=== PATIENT | female | born 1935 | race Caucasian/White ===

== ENCOUNTER 2022-07-25 11:53 | Inpatient (IN) | payer OTHER, MEDICAID ==
[~2022-07-25] VITALS: Ht 157.5 cm; Wt 56.7 kg
--- NOTE | 2022-07-25 11:58 | NUR ---
PT BIBA BED 9
[2022-07-25 12:02] VITALS: BP 181/71
--- NOTE | 2022-07-25 12:23 | NUR ---
briena from [facility] living for gen weakness. per family ambulatory yesterday. no facial droop. no lsurred speech. - arm drift. noted ble edema 2+ with redness. no sob. aao x2. resp even and nonalbored. denies chest pain, n,v,d,fever, chills, sob.
[2022-07-25] MEDS ORDERED: NACL 0.9% 1,000 ML IV ONE (12:25)
--- NOTE | 2022-07-25 12:49 | NUR ---
labs drawn, covid/flu swab and urine given to lab
--- NOTE | 2022-07-25 12:56 | NUR ---
per lab bnp send out @ this time. lewis lopez aware
--- NOTE | 2022-07-25 13:16 | NUR ---
contact info daughter jacques [phone]
[2022-07-25 13:24] LABS: BASOPHILS # (AUTO) 0.1 K/uL (0.00-0.22); BASOPHILS % (AUTO) 0.8 % (0.0-2.0); EOSINOPHILS % (AUTO) 0.4 % (0.0-4.0); HEMATOCRIT 32.6 % (36-48); HEMOGLOBIN 10.3 g/dL (12.0-16.0); LYMPHOCYTES # (AUTO) 1.7 K/uL (2.5-16.5); LYMPHOCYTES % (AUTO) 20.1 % (20.5-51.1); MEAN CORPUSCULAR HEMOGLOBIN 20 pg (27-31); MEAN CORPUSCULAR HGB CONC 32 g/dL (33-37); MEAN CORPUSCULAR VOLUME 63.3 fL (80-94); MONOCYTES # (AUTO) 0.4 K/uL (0.8-1.0); MONOCYTES % (AUTO) 5.1 % (1.7-9.3); NEUTROPHILS # (AUTO) 6.2 K/uL (1.8-7.7); NEUTROPHILS % (AUTO) 73.6 % (42.2-75.2); PLATELET COUNT (AUTO) 284 K/uL (140-450); RED BLOOD CELL COUNT(AUTO) 5.15 MIL/uL (4.20-5.40); RED CELL DISTRIBUTION WIDTH 16.8 % (11.6-13.7); WHITE BLOOD COUNT (AUTO) 8.4 K/uL (4.8-10.8)
[2022-07-25 13:51] LABS: PROTHROMBIN TIME 10.4 secs (10.8-13.4)
[2022-07-25 13:51] LABS: APPEARANCE,URINE CLEAR (CLEAR); BILIRUBIN,URINE NEGATIVE (NEGATIVE); BLOOD, URINE NEGATIVE (NEGATIVE); COLOR,URINE YELLOW (YELLOW); LEUKOCYTE ESTERASE ,URINE TRACE (NEGATIVE); NITRITE, URINE POSITIVE (NEGATIVE); PH,URINE 7.5 (5.0-9.0); UGLUCOSE NEGATIVE (NEGATIVE)
[2022-07-25 13:58] LABS: ALBUMIN 3.7 g/dL (3.4-5.0); ANION GAP 13.2 (8-16); ASPARTATE AMINOTRANSFERASE 23 U/L (15-37); CHLORIDE 104 mmol/L (98-107); CREATININE 0.6 mg/dL (0.6-1.3); GLUCOSE 141 mg/dL (74-106); POTASSIUM 4.2 mmol/L (3.5-5.1); SODIUM SERUM 139 mmol/L (136-145); TOTAL BILIRUBIN 0.6 mg/dL (0.0-1.0); UREA NITROGEN, BLOOD 18 mg/dL (7-18)
[2022-07-25 14:03] LABS: THYROID STIMULATING HORMONE 0.46 uIU/mL (0.34-3.74)
[2022-07-25 14:07] LABS: RBC,URINE 0-5 /HPF (0-5)
[2022-07-25] MEDS ORDERED: cefTRIAXone 1,000 MG VIAL ONE (14:30)
[2022-07-25] MEDS ORDERED: POTASSIUM CHLORIDE 10 MEQ TABER PO PRN (15:15)
[2022-07-25] MEDS ORDERED: ONDANSETRON 4 MG/2 ML VIAL IVP PRN (15:15)
[2022-07-25] MEDS: NACL 0.9% 1,000 ML IV SCH (15:15)
[2022-07-25] MEDS ORDERED: MAG SULF 2000 MG/WATER PREMIX 50 ML IV PRN (15:15)
--- NOTE | 2022-07-25 16:12 | NUR ---
PATIENT HAS BEEN SCREENED AND CATEGORIZED MODERATE NUTRITION RISK. PATIENT WILL BE SEEN WITHIN 3-5 DAYS OF ADMISSION. REVIEWED BY ERWIN SHEPPARD RD
[2022-07-25 16:54] LABS: PROTHROMBIN TIME 10.6 secs (10.8-13.4)
[2022-07-25 17:21] LABS: CHOL/HDL RATIO 2.4 (1-4.5); MAGNESIUM 1.9 mg/dL (1.8-2.4); PHOSPHORUS 2.7 mg/dL (2.5-4.9)
--- NOTE | 2022-07-25 17:21 | NUR ---
aao x2 with periods of forgetfullness. resp even and nonlabored. vss. pending med surg bed
[2022-07-25 17:51] LABS: FREE T4 (FREE THYROXINE) 0.96 ng/dL (0.76-1.46)
--- NOTE | 2022-07-25 19:15 | NUR ---
REPORT GIVEN TO NICK PATEL
--- NOTE | 2022-07-25 19:53 | NUR ---
Patient resting in bed, A/Ox4, chest rise and fall symmetrical, no s/s of distress.
--- NOTE | 2022-07-25 20:30 | NUR ---
Patient resting in bed, A/Ox4, chest rise and fall symmetrical, no c/o pain or s/s of distress.
[2022-07-25] MEDS: DOCUSATE SODIUM 100 MG GELCAP PO SCH (20:42)
[2022-07-25 21:20] LABS: THYROID STIMULATING HORMONE 0.38 uIU/mL (0.34-3.74)
--- NOTE | 2022-07-25 21:50 | NUR ---
Patient resting in bed, A/Ox4, chest rise and fall symmetrical, no c/o pain or s/s of distress.
--- NOTE | 2022-07-25 22:18 | NUR ---
Patient will be admitted to care of [facility] Nurse Cummings. Admited to [facility]. Will go to room 108B. Belongings list completed. Report to [facility] Nurse Cummings. [facility] Nurse Zoila verbalized understanding of report, no further questions.
[2022-07-25 22:20] VITALS: BP 188/89
--- NOTE | 2022-07-25 22:20 | NUR ---
RECEIVED PT A NEW ADMIT FROM ER. PATIENT IS AWAKE, ALERT AND ORIENTED X 3, FORGETFUL AT TIMES. DAUGHTER AT THE BEDSIDE. PT DENIES PAIN. DENIES SHORTNESS OF BREATH. NOTED BLE REDNESS/DRY. SKIN WARM AND DRY TO TOUCH. ORIENTED TO MST SET UP, CALL LIGHT PLACED WITHIN REACH. SAFETY PRECAUTIONS IN PLACE
[2022-07-25] MEDS: hydrALAZINE 20 MG/ML VIAL IVP PRN (23:13)
--- NOTE | 2022-07-25 23:45 | NUR ---
INCONTINENT OF URINE, PERINEAL CARE RENDERED. MADE COMFORTABLE IN BED. CALL LIGHT IN REACH.
[2022-07-26 00:13] VITALS: BP 158/68
[2022-07-26 07:19] LABS: PHOSPHORUS 2.6 mg/dL (2.5-4.9)
[2022-07-26 07:26] LABS: ANION GAP 11.9 (8-16); CARBON DIOXIDE 25.8 mmol/L (21-32); CHLORIDE 105 mmol/L (98-107); CREATININE 0.5 mg/dL (0.6-1.3); GLUCOSE 112 mg/dL (74-106); POTASSIUM 3.7 mmol/L (3.5-5.1); SODIUM SERUM 139 mmol/L (136-145)
[2022-07-26 07:49] LABS: UREA NITROGEN, BLOOD 15 mg/dL (7-18)
[2022-07-26 08:00] VITALS: BP 152/64
[2022-07-26 08:04] LABS: BASOPHILS % (AUTO) 0.5 % (0.0-2.0); EOSINOPHILS % (AUTO) 0.2 % (0.0-4.0); HEMATOCRIT 32.3 % (36-48); HEMOGLOBIN 10.1 g/dL (12.0-16.0); LYMPHOCYTES # (AUTO) 1.9 K/uL (2.5-16.5); LYMPHOCYTES % (AUTO) 22.2 % (20.5-51.1); MEAN CORPUSCULAR HEMOGLOBIN 20 pg (27-31); MEAN CORPUSCULAR HGB CONC 31 g/dL (33-37); MEAN CORPUSCULAR VOLUME 63.4 fL (80-94); MONOCYTES # (AUTO) 0.4 K/uL (0.8-1.0); MONOCYTES % (AUTO) 4.7 % (1.7-9.3); NEUTROPHILS # (AUTO) 6.1 K/uL (1.8-7.7); NEUTROPHILS % (AUTO) 72.4 % (42.2-75.2); PLATELET COUNT (AUTO) 275 K/uL (140-450); RED BLOOD CELL COUNT(AUTO) 5.09 MIL/uL (4.20-5.40); RED CELL DISTRIBUTION WIDTH 16.6 % (11.6-13.7); WHITE BLOOD COUNT (AUTO) 8.4 K/uL (4.8-10.8)
[2022-07-26] MEDS: PANTOPRAZOLE 40 MG INJ VIAL IVP SCH (10:19)
[2022-07-26] MEDS: DOCUSATE SODIUM 100 MG GELCAP PO SCH ×2 (10:20→20:28)
[2022-07-26] MEDS: NACL 0.9% 1,000 ML IV SCH (11:15)
--- NOTE | 2022-07-26 11:25 | NUR ---
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
[2022-07-26] MEDS ORDERED: CEPH-588 PO (11:56)
[2022-07-26] MEDS: ACETAMINOPHEN 325 MG TAB PO PRN (13:14)
[2022-07-26 16:00] VITALS: BP 163/65
--- NOTE | 2022-07-26 19:10 | NUR ---
RECEIVED PATIENT LYING ON THE BED, EATING, NO SIGNS OF DISTRESS NOTED, DENIES PAIN, FAMILY AT BEDSIDE. CALL LIGHT WITHIN REACH.
[2022-07-26 20:00] VITALS: BP 189/62
--- NOTE | 2022-07-26 20:30 | NUR ---
SCHEDULED MEDICATIONS GIVEN ORDERED.
[2022-07-26] MEDS: hydrALAZINE 20 MG/ML VIAL IVP PRN (20:57)
--- NOTE | 2022-07-26 20:57 | NUR ---
PRN APRESOLINE GIVEN, BP 189/62, P 88.
--- NOTE | 2022-07-26 21:57 | NUR ---
RECHECKED BP 148/60, P 93. BEDSIDE CARE DONE, PATIENT REPOSITIONED. CALL LIGHT WITHIN REACH.
--- NOTE | 2022-07-27 00:47 | NUR ---
PATIENT IS ASLEEP, BREATHING EVEN AND NON LABORED, ALL SAFETY MEASURES IN PLACE.
[2022-07-27] MEDS: NACL 0.9% 1,000 ML IV SCH ×2 (03:15→22:48)
--- NOTE | 2022-07-27 04:20 | NUR ---
BEDSIDE CARE DONE, PATIENT REPOSITIONED. CALL LIGHT WITHIN REACH, BED IN LOW AND LOCKED POSITION.
--- NOTE | 2022-07-27 07:12 | NUR ---
ENDORSED PATIENT TO DAY NURSE FOR CONTINUITY OF CARE. NEEDS MET THROUGHOUT THE SHIFT, PATIENT IN STABLE CONDITION.
[2022-07-27 07:20] LABS: BASOPHILS % (AUTO) 0.6 % (0.0-2.0); EOSINOPHILS % (AUTO) 0.6 % (0.0-4.0); HEMATOCRIT 31.4 % (36-48); HEMOGLOBIN 9.9 g/dL (12.0-16.0); LYMPHOCYTES # (AUTO) 1.5 K/uL (2.5-16.5); LYMPHOCYTES % (AUTO) 18.3 % (20.5-51.1); MEAN CORPUSCULAR HEMOGLOBIN 20 pg (27-31); MEAN CORPUSCULAR HGB CONC 32 g/dL (33-37); MEAN CORPUSCULAR VOLUME 62.9 fL (80-94); MONOCYTES # (AUTO) 0.5 K/uL (0.8-1.0); MONOCYTES % (AUTO) 6.6 % (1.7-9.3); NEUTROPHILS # (AUTO) 6.1 K/uL (1.8-7.7); NEUTROPHILS % (AUTO) 73.9 % (42.2-75.2); PLATELET COUNT (AUTO) 262 K/uL (140-450); RED CELL DISTRIBUTION WIDTH 16.7 % (11.6-13.7); WHITE BLOOD COUNT (AUTO) 8.3 K/uL (4.8-10.8)
[2022-07-27 07:22] LABS: ANION GAP 10.3 (8-16); CARBON DIOXIDE 26.3 mmol/L (21-32); CHLORIDE 107 mmol/L (98-107); CREATININE 0.5 mg/dL (0.6-1.3); GLUCOSE 115 mg/dL (74-106); POTASSIUM 3.6 mmol/L (3.5-5.1); SODIUM SERUM 140 mmol/L (136-145); UREA NITROGEN, BLOOD 10 mg/dL (7-18)
[2022-07-27 07:28] LABS: MAGNESIUM 1.8 mg/dL (1.8-2.4); PHOSPHORUS 2.2 mg/dL (2.5-4.9)
[2022-07-27 08:03] VITALS: BP 188/99
[2022-07-27] MEDS: PANTOPRAZOLE 40 MG INJ VIAL IVP SCH (09:14)
[2022-07-27] MEDS: ACETAMINOPHEN 325 MG TAB PO PRN (09:14)
[2022-07-27] MEDS: DOCUSATE SODIUM 100 MG GELCAP PO SCH ×2 (09:14→20:59)
[2022-07-27] MEDS: hydrALAZINE 20 MG/ML VIAL IVP PRN (09:18)
[2022-07-27 12:17] VITALS: BP 149/78
[2022-07-27] MEDS: HYDROcodone/APAP 7.5/325 MG 1 TAB PO PRN (12:37)
[2022-07-27] MEDS: predniSONE 20 MG TAB PO SCH (14:46)
[2022-07-27 17:54] VITALS: BP 151/67
--- NOTE | 2022-07-27 19:15 | NUR ---
RECEIVED PATIENT LYING ON THE BED, PATIENT IS AWAKE, ALERT AND ORIENTED, NO SIGNS OF PAIN, NO SIGNS OF DISTRESS NOTED. FAMILY AT BEDSIDE. ALL SAFETY MEASURES IN PLACE.
[2022-07-27 20:00] VITALS: BP 137/62
--- NOTE | 2022-07-27 21:00 | NUR ---
SCHEDULED MEDICATIONS GIVEN ORDERED.
[2022-07-28 04:00] VITALS: BP 142/81
--- NOTE | 2022-07-28 04:45 | NUR ---
BED SIDE CARE DONE, NO SIGNS OF PAIN/DISCOMFORT NOTED. PATIENT REPOSITIONED. CALL LIGHT WITHIN REACH
--- NOTE | 2022-07-28 07:08 | NUR ---
receive the patienht from the security shift manager rn with admitting diagnosis of urinary tract infection , left leg cellulitis . will continue to monitor
[2022-07-28 07:17] LABS: BASOPHILS % (AUTO) 0.4 % (0.0-2.0); EOSINOPHILS % (AUTO) 0.5 % (0.0-4.0); HEMATOCRIT 31.4 % (36-48); HEMOGLOBIN 9.8 g/dL (12.0-16.0); LYMPHOCYTES # (AUTO) 2.5 K/uL (2.5-16.5); LYMPHOCYTES % (AUTO) 32.3 % (20.5-51.1); MEAN CORPUSCULAR HEMOGLOBIN 20 pg (27-31); MEAN CORPUSCULAR HGB CONC 31 g/dL (33-37); MEAN CORPUSCULAR VOLUME 63.4 fL (80-94); MONOCYTES # (AUTO) 0.6 K/uL (0.8-1.0); MONOCYTES % (AUTO) 7.5 % (1.7-9.3); NEUTROPHILS # (AUTO) 4.7 K/uL (1.8-7.7); NEUTROPHILS % (AUTO) 59.3 % (42.2-75.2); PLATELET COUNT (AUTO) 281 K/uL (140-450); RED BLOOD CELL COUNT(AUTO) 4.95 MIL/uL (4.20-5.40); RED CELL DISTRIBUTION WIDTH 16.9 % (11.6-13.7); WHITE BLOOD COUNT (AUTO) 7.9 K/uL (4.8-10.8)
[2022-07-28 07:33] LABS: ANION GAP 11.6 (8-16); CARBON DIOXIDE 25.2 mmol/L (21-32); CHLORIDE 108 mmol/L (98-107); CREATININE 0.5 mg/dL (0.6-1.3); GLUCOSE 95 mg/dL (74-106); POTASSIUM 3.8 mmol/L (3.5-5.1); SODIUM SERUM 141 mmol/L (136-145); UREA NITROGEN, BLOOD 17 mg/dL (7-18)
[2022-07-28 07:38] LABS: PHOSPHORUS 2.1 mg/dL (2.5-4.9)
--- NOTE | 2022-07-28 07:42 | NUR ---
ENDORSED TO DAY NURSE FOR CONTINUITY OF CARE. NEEDS MET THROUGHOUT THE SHIFT. PATIENT IN STABLE CONDITION.
[2022-07-28] MEDS: PANTOPRAZOLE 40 MG INJ VIAL IVP SCH (09:55)
[2022-07-28] MEDS: DOCUSATE SODIUM 100 MG GELCAP PO SCH ×2 (09:55→20:28)
[2022-07-28] MEDS: predniSONE 20 MG TAB PO SCH (09:58)
--- NOTE | 2022-07-28 10:58 | NUR ---
WOUND CARE NOTE: PT. ADMITTED WITH BLE CELLULITIS. PT IS AAX4. STATE IT'S A CHRONIC PROBLEMS. TODAY'S ASSESSMENT NO OPEN ACTIVE WOUND NOTICE. SKIN JAUNDICE IN COLOR,PALE AND COLD TO TOUCH. BLE NO ERYTHEMA, WITH +2 EDEMA,LOWER LEGS AND FEET XEROSIS WITH DEFORMATIVE /HAMMER TOES. PAIN 0/10. POC DISCUSSED WITH PT. PT. VERBALIZES UNDERSTANDING. PT. WITH LOW HALEY SCALE AT MODERATE TO HIGH RISK, CONTINUE TO FOLLOW PRESSURE INJURY PREVENTION INTERVENTIONS. -APPLY HYDRAGUARD TO UPPER AND LOWER EXTREMITIES AND TRUNK OF BODY BID AND NUCLEAR OFFICER -POSITIONING: TURN AND REPOSITION PATIENT Q 2H OR SOONER USE PILLOWS TO KEEP BONY PROMINENCES FROM DIRECT CONTACT WITH SURFACES USE REPOSITIONING WEDGES TO PROVIDE 30-DEGREE ANGLE FOR SIDE LYING POSITIONS OFFLOADING OR FOAM DRESSING TO ALL TUBING TO PREVENT MEDICAL DEVICES RELATED PRESSURE INJURY -RE-EVALUATING AND MANAGING INCONTINENCE MONITOR SKIN CONDITION DURING POSITION CHANGE DO NOT MASSAGE REDNESS, BONY PROMINENCES FREQUENT ELIEZER-CARE AND PROVIDE BARRIER CREAMS PRN IF SOILING MOISTURE CONTROL BY OFFER BED MART/URINAL /ABSORBENT PAD TO WICK AND HOLD MOISTURE KEEP SKIN DRY AND PROTECT FROM FRICTION -MANAGE FRICTION/SHEAR/MOBILITY KEEP HOB AT THE LOWEST LEVEL OF ELEVATION NO MORE THAN 30 DEGREE UNLESS OTHERWISE CONTRAINDICATED USE LIFT SHEET OR TRANSFER DEVICE TO MOVE PATIENT AND PREVENT LATERAL SHEER. PROTECT HEELS, ELBOWS BONY PROMINENCES WITH SKIN BERRIES OR FOAM DRESSING IF EXPOSED TO FRICTION OFFLOAD BILATERAL HEELS BY PLACING PILLOWS UNDER CALVES AT ALL TIMES, UNLESS OTHERWISE CONTRAINDICATED -PRESSURE REDISTRIBUTION SURFACE THERAPY KELLY ISOFLEX MATTRESS -NUTRITION: PLEASE FOLLOW RD RECOMMENDATIONS AND OFFER NUTRITION SUPPLEMENTS IF ORDERED. PLEASE CONTACT WOUND CARE NURSE FOR ANY QUESTION AND CHANGE OF WOUND CONDITION.
[2022-07-28] MEDS ORDERED: PRED10TA5 PO (12:44)
[2022-07-28] MEDS ORDERED: LISI10TA30 PO (12:44)
[2022-07-28] MEDS: HYDRAGUARD CREAM TP SCH (13:00)
--- NOTE | 2022-07-28 13:12 | NUR ---
DISCHARGE PLANNING: RECEIVED DISCHARGE ORDER. MET WITH THE PATIENT AND HER DAUGHTER AT THE BEDSIDE TO DISCUSS DC PLANNING. PER PATIENT'S DAUGHTER HITESH, THEY ARE WAITING FOR PT TO EVALUATE PATIENT. SHE IS ALSO AGREEABLE TO SNF IF PT RECOMMENDS IT. PER HITESH, THEY DO NOT HAVE ANY PREFERENCE FOR SNF BUT WANT TO CHECK FACILITY'S RATING BEFORE DECIDING. PROVIDED [facility] AND [facility]S BROCHURES. WILL FOLLOW UP. Addendum: 07/28/22 at 1534 by Abida Alcocer CM RECEIVED ORDER FOR DC TO SNF FOR PT. REFERRAL SENT TO [facility] AND [facility]. RECEIVED A CALL FROM JUAN OF [facility] STATING THAT THEY ARE ABLE TO ACCEPT PATIENT. INFORMED JUAN THAT PATIENT'S DAUGHTER WILL BE CHECKING THE FACILITIES THAT WE SENT THE REFERRALS. [facility] STATED THAT THEY ARE ABLE TO ACCEPT PATIENT. PATIENT'S DAUGHTER HITESH INFORMED. PER HITESH, SHE IS JUST FINISHING SOMETHING AND WILL GO TO TOUR THE FACILITY. INFORMED HITESH THAT THIS CM WILL BE HERE UNTIL 163 AND IF WE CAN HAVE A DECISION BEFORE THAT FOR US TO ARRANGE TRANSPORTATION. HITESH ABLE TO VERBALIZE UNDERSTANDING. Addendum: 07/28/22 at 1712 by Abida B. Berdijo CM MADE A FOLLOW UP CALL TO PATIENT'S DAUGHTER HITESH REGARDING SNF PLACEMENT. PER HITESH SHE WENT TO [facility] AND THE PLACE IS NOISY AND CROWDED. SHE ALSO STATED THAT [facility] IS TOO FAR FROM HER. HITESH MENTIONED SHE WILL VISIT 2 FACILITIES CLOSE TO HER AND WILL LET THIS CM KNOW FOR ANSWERS TO JOSELIN RAY. WILL FOLLOW UP. Addendum: 07/29/22 at 1157 by Jil Cabrera RN DC PLANNING: CM SPOKE WITH PT'S DAUGHTER HITESH AT BED SIDE ,PER DAUGHTER REQUESTING HER MOM TO GO TO [facility] FAXED THE REQUEST TO [facility]. CM TO FOLLOW Addendum: 07/29/22 at 1315 by Jil Cabrera RN DC PLANNING: RECEIVED A CALL FROM [facility] SPOKE WITH GEE STATED, ACCEPTED PATIENT CAN GO TO ROOM 11A # TO GIVE REPORT [phone] GEE WILL ARRANGED TRANSPORT INSPECTOR MACHINE CUT GLASS TIME 5:30PM WITH PERSONAL CARE TRANSPORT [phone] NOTIFIED PATIENT'S DAUGHTER HITESH AND AMANDA ROBERTSON. CM TO FOLLOW
--- NOTE | 2022-07-28 14:11 | NUR ---
DC PLANNING: REFERRAL PACKET SENT TO [facility] AND [facility].
--- NOTE | 2022-07-28 17:02 | NUR ---
the daughter came . will inform ayala child welfare caseworker of the facility that they have chosen tomorrow
--- NOTE | 2022-07-28 17:30 | NUR ---
case repairer of [facility] they will wait the daughter for ocular inspection
--- NOTE | 2022-07-28 18:35 | NUR ---
will endorse to night shift manager rn for continuity of care
--- NOTE | 2022-07-28 18:36 | NUR ---
RECEIVED ENDORSEMENT FROM EILEEN RN (REGISTRY), PATIENT WAS EATING WITH DAUGHTER AT BED SIDE. DAUGHTER EXPRESSED THAT MOTHER WAS HAVING DIFFICULTY SWALLOW. PATIENT HAS FINISHED EAT AND THEREFORE NURSING WAS NOT ABLE TO WITNESS THE DIFFICULTY. NURSING WILL ADVISE THE MD IN AM. NO NOTED S/S OF PAIN AT THIS TIME. NO NOTED S/S OF RESPIRATORY DISTRESS. SIDE RAIL UP X 2 CALL LIGHT WITHIN REACH. NURSING WILL FREQUENT THE ROOM BECAUSE THE PATIET FORGETS HOW TO USE THE CALL LIGHT AND WILL SHOUT OUT FOR ASSISTANCE. [id number]
[2022-07-28 20:00] VITALS: BP 151/74
--- NOTE | 2022-07-28 20:00 | NUR ---
Patient's Plan of Care was discussed and reviewed with ATG JAVA DEVELOPER: SENA DAVIS
[2022-07-28] MEDS: HYDROcodone/APAP 7.5/325 MG 1 TAB PO PRN (20:38)
[2022-07-28] MEDS: NACL 0.9% 1,000 ML IV SCH (23:43)
[2022-07-29] MEDS: HYDRAGUARD CREAM TP SCH ×2 (01:14→17:49)
[2022-07-29 04:00] VITALS: BP 183/79
[2022-07-29] MEDS: HYDROcodone/APAP 7.5/325 MG 1 TAB PO PRN (05:00)
--- NOTE | 2022-07-29 05:53 | NUR ---
NEW ORDERS FOR SWALLOW EVALUATION. PATIENT COUGH WHEN VITAL SIGNS ARE TAKEN. NON PRODUCTIVE. PATIENT WILL NOT SIT STILL FOR BLOOD PRESSURE TO GET AN ACCURATE READ. [email or web address]
[2022-07-29] MEDS ORDERED: CLONIDINE HYDROCHLORIDE 0.1 MG TAB PO SCH (06:00)
--- NOTE | 2022-07-29 07:03 | NUR ---
ENDORSED PATIENT TO EILEEN RN (REGISTRY), FOR CONTINUITY OF CARE. PATIENT WAS STABLE DURING SHIFT REPORT. [email or web address]
[2022-07-29 07:10] LABS: BASOPHILS # (AUTO) 0.1 K/uL (0.00-0.22); BASOPHILS % (AUTO) 1.1 % (0.0-2.0); EOSINOPHILS % (AUTO) 0.6 % (0.0-4.0); HEMATOCRIT 29.9 % (36-48); HEMOGLOBIN 9.5 g/dL (12.0-16.0); LYMPHOCYTES # (AUTO) 2.6 K/uL (2.5-16.5); LYMPHOCYTES % (AUTO) 33.3 % (20.5-51.1); MEAN CORPUSCULAR HEMOGLOBIN 20 pg (27-31); MEAN CORPUSCULAR HGB CONC 32 g/dL (33-37); MEAN CORPUSCULAR VOLUME 62.9 fL (80-94); MONOCYTES # (AUTO) 0.5 K/uL (0.8-1.0); MONOCYTES % (AUTO) 6.3 % (1.7-9.3); NEUTROPHILS # (AUTO) 4.5 K/uL (1.8-7.7); NEUTROPHILS % (AUTO) 58.7 % (42.2-75.2); PLATELET COUNT (AUTO) 259 K/uL (140-450); RED BLOOD CELL COUNT(AUTO) 4.76 MIL/uL (4.20-5.40); RED CELL DISTRIBUTION WIDTH 16.9 % (11.6-13.7); WHITE BLOOD COUNT (AUTO) 7.7 K/uL (4.8-10.8)
[2022-07-29 07:13] LABS: MAGNESIUM 1.9 mg/dL (1.8-2.4); PHOSPHORUS 2.2 mg/dL (2.5-4.9)
--- NOTE | 2022-07-29 07:18 | NUR ---
receive the patient from the it senior analyst rn in rm 108B aox2 with episode of confusion admitting diagnosis of urinary tract infection . for possible discharge today . will continue to monitor
[2022-07-29 07:22] LABS: ANION GAP 10.4 (8-16); CARBON DIOXIDE 26.4 mmol/L (21-32); CHLORIDE 108 mmol/L (98-107); CREATININE 0.5 mg/dL (0.6-1.3); GLUCOSE 96 mg/dL (74-106); POTASSIUM 3.8 mmol/L (3.5-5.1); SODIUM SERUM 141 mmol/L (136-145); UREA NITROGEN, BLOOD 21 mg/dL (7-18)
[2022-07-29] MEDS: predniSONE 20 MG TAB PO SCH (08:44)
[2022-07-29] MEDS: PANTOPRAZOLE 40 MG INJ VIAL IVP SCH (08:45)
[2022-07-29] MEDS: DOCUSATE SODIUM 100 MG GELCAP PO SCH (08:48)
--- NOTE | 2022-07-29 08:54 | NUR ---
DC PLANNING ASSESSMENT COMPLETE PLEASE REFER TO ASSESSMENT FOR DETAILS TENTATIVE DC PLAN IS FOR PT TO DC TO SNF FOR PHYSICAL THERAPY. PTS DAUGHTER TO CALL CM FOR UPDATE ON PREFERRED SNF'S. Addendum: 07/29/22 at 0855 by Thierry Garrido SS Amended: Links added.
[2022-07-29] MEDS ORDERED: lisinopriL 10 MG TAB PO SCH (09:00)
--- NOTE | 2022-07-29 09:30 | NUR ---
the daughter has finally decide in the SNIF they want for the mother . the daughter said she will ayala window caser
--- NOTE | 2022-07-29 11:10 | NUR ---
physical therapy evaluated the patient , ok to walk up to the restroom with assist with front wheel walker
[2022-07-29 12:00] VITALS: BP 143/79
--- NOTE | 2022-07-29 14:15 | NUR ---
gave report to dwaine yeh of [facility] [phone]
--- NOTE | 2022-07-29 14:30 | NUR ---
inform daughter niall about the dischrage . she will be here for the discharge
--- NOTE | 2022-07-29 15:37 | NUR ---
PHYSICAL THERAPY CO-SIGN The Physical Therapy Progress Notes documented by Bowl Topper have been reviewed. Reviewed/Co-Signed by: Montserrat Omalley Documentation Done by: BLANCHE GUIDRY PTA Addendum: 07/29/22 at 1537 by Montserrat Omalley PT Amended: Links added.
--- NOTE | 2022-07-29 18:18 | NUR ---
will endorse to night cleaner rn for continuity of care . for possible discharge today to [facility]
== END 2022-07-29 18:40 | DRG 872 ==
LOC: MED 11:53 → MTU 14:37
DX: A41.9 Sepsis, unspecified organism (principal); N39.0 Urinary tract infection, site not specified; L03.116 Cellulitis of left lower limb; D63.8 Anemia in other chronic diseases classified elsewhere; Z20.822 Contact with and (suspected) exposure to COVID-19; E86.0 Dehydration; M06.9 Rheumatoid arthritis, unspecified; I10 Essential (primary) hypertension; Z96.653 Presence of artificial knee joint, bilateral; B96.20 Unspecified Escherichia coli [E. coli] as the cause of diseases classified elsewhere
CPT/HCPCS: 36415; 71045; 73590; 80048; 80053; 81001; 82140; 82150; 83036; 83605; 83690; 83735; 83880; 84100; 84439; 84443; 84484; 85025; 85610; 85730; 87040; 87081; 87086; 90471; 90715; 92526; 93005; 96361; 96365; 97110; 97116; 97163-GP; 97530; 99285; C9113; J0360; J0696; J1644; J7512; Q0092